=== PATIENT | female | born 1965 | race Caucasian/White ===

== ENCOUNTER 2024-02-27 01:40 | Outpatient (CLI) | payer MEDICAID, SELFPAY ==
--- NOTE | 2024-02-27 07:15 | DI.US_ITS ---
Exam(s) US NEEDLE LOCAL OTHER WO RAD EXAM: Multinodular thyroid,ultrasound guided bx.e04.2 COMPARISON: No exams were available for comparison TECHNIQUE: Ultrasound performed using standard protocol. FINDINGS: Sonography was provided for Dr. Jimenez during the performance of a biopsy of thyroid nodules. Fouzia knight refer to the procedure report for complete details. DATA REPOSITORY:
--- NOTE | 2024-02-27 12:30 | PAPNONF_PTH ---
PATIENT: Chely Gonzalez LOC: SIM U#:[id number] AGE/SX: 58/F ROOM: RE02/27/[address]: Jordon Jimenez MD : [id number] BED: DIS: 02/27/2024 SPEC #: [id number] RECD: 02/27/24 13:23 STATUS: MARY REQ #: [id number] JOSE LUIS: 02/27/24 12:[address]: Jordon Jimenez DEPT: [facility] Cytology RECD BY: Neeta Lopez ENTERED: 02/27/24 13:25 SP TYPE: KIARRA BACA DR: Dorinda Moon Tissues: 1 - BODY FLUID CYTO-FINE NEEDLE ASPIRATE-[facility] 2 - BODY FLUID CYTO-FINE NEEDLE ASPIRATE-[facility] Procedures: BODY FLUID CYTO-FINE NEEDLE ASPIRATE-[facility] Comments: [id number] (PATH FNA CONSULT) (REFRIGERATED)
--- NOTE | 2024-02-27 13:16 | W.PROCNOTE ---
Date of service: 02/27/24 Time of Service: 13:17 Procedure Note Date of procedure: 02/27/24 Procedure: Ultrasound-guided FNA, bilateral thyroid nodules, pathology present Surgeon/Proceduralist/Physician: Jordon Jimenez Procedure Diagnosis: Bilateral thyroid nodules meeting criteria for biopsy Procedure Indications: The patient has bilateral thyroid nodules meeting criteria for biopsy. Options were explained to the patient regarding further management. She elected to undergo the above procedure. Risks and benefits as well as the procedure and postprocedural courses were discussed at length. Consent was filled out and signed. The below was then performed. Procedure Description: The patient was positioned in supine position and prepped and draped in appropriate fashion. With her neck slightly extended, ultrasound was used to localize the nodules bilaterally and 1% lidocaine with 1/100,000 epinephrine was injected over the medial aspect of each nodule. A 25-gauge needle was then advanced into the thyroid nodules, and used to obtain adequate numbers of cells. Cellular adequacy was verified by pathology. It took 2 passes to reach cellular adequacy on the left and 3 passes on the right. 2 additional passes were made into each nodule for potential Afirma testing. All of these were done under ultrasound guidance. The patient tolerated procedure well. There was no significant bleeding or bruising. Sterile dressing was applied to the entry site. The patient was then allowed to sit, stand, and ambulate. Her vital signs remained stable. She will remove the bandage in a couple of hours and not replace it. She will call with any signs of infection or inflammation. She will avoid anything strenuous for the next hour. She will use Tylenol or ibuprofen for discomfort. She will call if she does not hear from me within 1 week with regard to pathology results. She had no further questions. She is comfortable with the plan.
== END 2024-02-27 02:00 ==
LOC: DI 01:40
PROVIDERS: PCP Nurse Practitioner Family; Visit Provider Otolaryngology
DX: E04.2 Nontoxic multinodular goiter (principal)
CPT/HCPCS: 10005; 10006; 76942; 88104

== ENCOUNTER 2025-03-10 02:22 | Outpatient (CLI) | payer MEDICAID, SELFPAY ==
--- NOTE | 2025-03-10 12:00 | DI.US_ITS ---
Exam(s) US THYROID EXAM: US THYROID CLINICAL HISTORY: Assess for stability,MULTIPLE THYROID NODULES,E04.2. TECHNIQUE: Ultrasound thyroid performed using standard protocol. COMPARISON: US US THYROID/NECK/HEAD from 03/12/2020 US US NEEDLE LOCAL OTHER WO RAD from 02/27/2024 FINDINGS: ISTHMUS: 3 mm RIGHT LOBE: Size: 5.6 x 2.5 x 3.3 cm Echogenicity: Normal. Vascularity: Normal. Nodules: Nodule mid to lower pole measuring 3.3 x 1.8 x 2.6 cm. This has increased from the prior exam where it measured it measures 3.0 x 1.1 x 2.2 cm. This may due to increased cystic spaces. The nodule is circumscribed, mixed cystic and solid, isoechoic and without echogenic foci, TR 2. LEFT LOBE: Size: 5.7 x 1.8 x 2.1 cm Echogenicity: Normal. Vascularity: Normal. Nodules: Nodule in the midportion measuring 2.8 x 1.6 x 2.0. This is not changed from the prior exam. It is mixed cystic and solid, decreased echogenicity, smoothly marginated with echogenic foci, TR 4. OTHER FINDINGS: None. IMPRESSION: Mild interval increase in size of TR 2 nodule in the right lobe. Stable size of TR 4 nodule in the left lobe. DATA REPOSITORY:
== END 2025-03-10 02:42 ==
PROVIDERS: PCP Nurse Practitioner Family; Visit Provider Otolaryngology
DX: E04.2 Nontoxic multinodular goiter (principal)
CPT/HCPCS: 76536